=== PATIENT | male | born 1970 | race Caucasian/White ===

== ENCOUNTER 2021-12-01 12:07 | Emergency (ER) | payer OTHER ==
[~2021-12-01] VITALS: Ht 180.3 cm; Wt 101.2 kg
[2021-12-01] MEDS ORDERED: HYDROCODON-ACE1 EA10 PO (17:09)
== END 2021-12-01 17:31 | disposition home or self-care (01) ==
LOC: ED 12:07
DX: T24.031A Burn of unspecified degree of right lower leg, initial encounter (principal); Z88.2 Allergy status to sulfonamides; Z88.8 Allergy status to other drugs, medicaments and biological substances; X08.8XXA Exposure to other specified smoke, fire and flames, initial encounter
CPT/HCPCS: 16020; 99283-25

== ENCOUNTER 2022-12-14 10:20 | Emergency (ER) | payer OTHER ==
[~2022-12-14] VITALS: Ht 180.3 cm; Wt 105.3 kg
[~2022-12-14 10:20] MED LIST: HYDROCODON-ACE1 EA10 PO
[2022-12-14 11:47] VITALS: BP 142/88
== END 2022-12-14 11:49 | disposition home or self-care (01) ==
LOC: ED 10:20
DX: S63.616A Unspecified sprain of right little finger, initial encounter (principal); X50.0XXA Overexertion from strenuous movement or load, initial encounter; Y92.89 Other specified places as the place of occurrence of the external cause; Y99.0 Civilian activity done for income or pay; Z88.2 Allergy status to sulfonamides; Z88.8 Allergy status to other drugs, medicaments and biological substances
CPT/HCPCS: 73130; 99283-25

== ENCOUNTER 2022-12-15 07:32 | Emergency (ER) | payer OTHER ==
[~2022-12-15] VITALS: Ht 180.3 cm; Wt 105.2 kg
--- OUTSIDE RECORDS SUMMARY | 2022-12-15 07:37 | XMS ---
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 Monalisa has no Care Guidelines for this patient. [place] VISIT COUNT (12 MO.) [address] [facility] [place] TOTAL 2 NOTE: Visits indicate total known visits. ED/C VISIT TRACKING (12 MO.) 12/15/2022 07:[address] [facility] [place] TYPE: Emergency COMPLAINT: - RECHECK 12/14/2022 10:21 [facility] [place] TYPE: Emergency COMPLAINT: - R HAND INJURY INPATIENT VISIT TRACKING (12 MO.) No inpatient visits to display in this time frame [email or web address]
[2022-12-15 08:24] VITALS: BP 158/89
== END 2022-12-15 08:28 | disposition home or self-care (01) ==
LOC: ED 07:32
DX: Z48.00 Encounter for change or removal of nonsurgical wound dressing (principal); Z88.2 Allergy status to sulfonamides; Z88.8 Allergy status to other drugs, medicaments and biological substances
CPT/HCPCS: 99282